=== PATIENT | male | born 1965 | race Two or more races ===

== ENCOUNTER → 2024-05-31 | Outpatient (CLI) | payer BC, SELFPAY ==
[2024-05-31 08:43] LABS: Glucose Estimated Average 160 mg/dL (80-131); Hemoglobin A1C 7.2 % Hgb (4.8-6.0)
== END | disposition home or self-care (01) ==
LOC: COPL 07:13
PROVIDERS: PCP Internal Medicine; Referring Provider Internal Medicine; Visit Provider Internal Medicine
DX: E11.9 Type 2 diabetes mellitus without complications (principal)
CPT/HCPCS: 36415; 83036

== ENCOUNTER → 2024-08-14 | Outpatient (CLI) | payer BC, SELFPAY ==
[2024-08-14 08:52] LABS: Glucose Estimated Average 160 mg/dL (80-131); Hemoglobin A1C 7.2 % Hgb (4.8-6.0)
== END | disposition home or self-care (01) ==
PROVIDERS: PCP Internal Medicine; Referring Provider Internal Medicine; Visit Provider Internal Medicine
DX: E11.9 Type 2 diabetes mellitus without complications (principal)
CPT/HCPCS: 36415; 83036

== ENCOUNTER → 2024-11-25 | Outpatient (CLI) | payer BC, SELFPAY ==
[2024-11-25 08:42] LABS: Basophils % (Auto) 0 % (0-2.5); Eosinophils # (Auto) 0.2 Thou/mm3 (0.0-0.5); Eosinophils % (Auto) 2 % (0-10); Hemoglobin 14.5 g/dL (13.5-16.0); Immature Granulocytes % (Auto) 0 % (0-0); Immature Granulocytes Auto 0.02 Thou/mm3 (0.00-0.00); Lymphocytes # (Auto) 2.6 Thou/mm3 (1.0-4.8); Lymphocytes % (Auto) 31 % (10-50); Mean Corpuscular Hemoglobin 28.2 pg (25.0-35.0); Mean Corpuscular Volume 86 fL (80-100); Monocytes # (Auto) 0.6 Thou/mm3 (0.0-0.8); Monocytes % (Auto) 7 % (0-12); Neutrophils % (Auto) 60 % (37-80); Nucleated Red Blood Cell % 0 /100 WBC (0); Platelet Count 304 Thou/mm3 (140-440); RDW Standard Deviation 40.4 fL (35.1-43.9); Red Blood Count 5.14 Miln/mm3 (4.50-5.90); White Blood Count 8.5 Thou/mm3 (3.8-10.6)
[2024-11-25 08:46] LABS: Prostate Specific Antigen 1.05 ng/mL (0-4.00)
[2024-11-25 08:50] LABS: Vitamin D 25 Hydroxy Total 46.7 ng/mL (7.3-40.2)
[2024-11-25 08:52] LABS: Alanine Aminotransferase 12 U/L (10-49); Albumin, Serum 4.6 gm/dL (3.4-4.8); Albumin/Globulin Ratio 1.8 (1.2-2.2); Alkaline Phosphatase 75 U/L (46-116); Anion Gap 13 (7-16); Aspartate Amino Transferase 16 U/L (0-34); BUN/Creatinine Ratio 13 Ratio (12-20); Bilirubin,Total 1.2 mg/dL (0.3-1.2); Blood Urea Nitrogen 14 mg/dL (9-23); Calcium 9.2 mg/dL (8.3-10.6); Calcium (Corrected) 9.2 mg/dL (8.5-10.1); Cardiac Risk Estimate 4.2 RATIO (4.0-6.7); Chloride 103 mMol/L (98-107); Cholesterol 197 mg/dL (132-200); Creatinine (Component) 1.1 mg/dL (0.6-1.3); Free T4 (Free Thyroxine) 1.26 ng/dL (0.89-1.76); Globulin 2.5 gm/dL (2.3-3.5); Glucose 126 mg/dL (74-106); HDL Cholesterol 47 mg/dL (40-60); LDL Cholesterol,Calculated 116 mg/dL (0-130); Osmolality,Calculated 285 (275-295); Potassium 4.1 mMol/L (3.4-5.1); Sodium 142 mMol/L (136-145); Thyroid Stimulating Hormone 1.28 uIU/mL (0.55-4.78); Total Protein 7.1 gm/dL (5.7-8.2); Triglycerides 168 mg/dL (30-150); eGFR > 60 See Note
[2024-11-25 11:05] LABS: Glucose Estimated Average 166 mg/dL (80-131); Hemoglobin A1C 7.4 % Hgb (4.8-6.0)
== END | disposition home or self-care (01) ==
LOC: COPL 06:38
PROVIDERS: PCP Internal Medicine; Referring Provider Internal Medicine; Visit Provider Internal Medicine
DX: Z00.00 Encounter for general adult medical examination without abnormal findings (principal); N40.1 Benign prostatic hyperplasia with lower urinary tract symptoms; E55.9 Vitamin D deficiency, unspecified
CPT/HCPCS: 36415; 80053; 80061; 82306; 83036; 84153; 84439; 84443; 85025

== ENCOUNTER → 2025-03-03 | Outpatient (CLI) | payer BC, SELFPAY ==
[2025-03-03 08:45] LABS: Glucose Estimated Average 177 mg/dL (80-131); Hemoglobin A1C 7.8 % Hgb (4.8-6.0)
== END | disposition home or self-care (01) ==
LOC: COPL 06:38
PROVIDERS: PCP Internal Medicine; Referring Provider Internal Medicine; Visit Provider Internal Medicine
DX: E11.9 Type 2 diabetes mellitus without complications (principal)
CPT/HCPCS: 36415; 83036

== ENCOUNTER 2025-03-19 20:04 | Emergency (ER) | payer BC, SELFPAY ==
[2025-03-19 20:04] VITALS: BMI 74.9
[2025-03-19 20:52] VITALS: BP 147/77; PULSE 91; RESP 18; TEMP 36.9; O2SAT 98
--- NOTE | 2025-03-19 20:56 | XR_ITS ---
Examination: PA chest single view Technique: Upright PA chest single view Date and time: March 19, 2025, 2106 hrs., Comparison September 05, 2022 Indications: Nausea vomiting epigastric pain shortness of breath today. Findings: Normal heart size Scarring versus pneumonia in the lingular segment Right lung clear No pulmonary edema Impression: Parenchymal scarring versus pneumonia in the lingular segment left upper lobe, clinical correlation advised
--- NOTE | 2025-03-19 20:56 | EKG_ITS ---
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
--- NOTE | 2025-03-19 20:57 | EDRME_ITS ---
Rapid Medical Screening Exam [facility] Arrival date/time: 03/19/25 20:04 59M with history of HTN and DM presents to ED with 1 day of lower chest/epigastric pain and N/V and SOB. Patient had some non-bloody diarrhea yesterday. Chief Complaint: Abdominal Pain Time Seen by Provider: 03/19/25 20:56 Vital signs: Vital Signs Temperature 98.5 F 03/19/25 20:52 Pulse Rate 91 03/19/25 20:52 Respiratory Rate 18 03/19/25 20:52 Blood Pressure 147/77 H 03/19/25 20:52 Pulse Oximetry (%) 98 03/19/25 20:52 Oxygen Delivery Method Room Air 03/19/25 20:52
[2025-03-19] MEDS: ONDANSETRON ODT 4 MG TABRAP PO (21:03)
[2025-03-19 21:30] LABS: Basophils # (Auto) 0.0 Thou/mm3 (0.0-0.2); Basophils % (Auto) 0 % (0-2.5); Eosinophils # (Auto) 0.0 Thou/mm3 (0.0-0.5); Eosinophils % (Auto) 0 % (0-10); Hematocrit 40.2 % (41.0-53.0); Hemoglobin 13.3 g/dL (13.5-16.0); Immature Granulocytes Auto 0.05 Thou/mm3 (0.00-0.00); Lymphocytes # (Auto) 1.3 Thou/mm3 (1.0-4.8); Lymphocytes % (Auto) 9 % (10-50); Mean Corpuscular HGB Conc 33.1 g/dl (31.0-37.0); Mean Corpuscular Hemoglobin 28.5 pg (25.0-35.0); Mean Corpuscular Volume 86 fL (80-100); Monocytes # (Auto) 0.6 Thou/mm3 (0.0-0.8); Monocytes % (Auto) 4 % (0-12); Neutrophils # (Auto) 13.1 Thou/mm3 (1.8-7.7); Neutrophils % (Auto) 87 % (37-80); Nucleated Red Blood Cell # 0.00 Thou/mm3 (0.00-0.00); Nucleated Red Blood Cell % 0 /100 WBC (0); Platelet Count 298 Thou/mm3 (140-440); RDW Standard Deviation 40.0 fL (35.1-43.9); Red Blood Count 4.67 Miln/mm3 (4.50-5.90); White Blood Count 15.1 Thou/mm3 (3.8-10.6)
[2025-03-19 21:47] LABS: Alanine Aminotransferase 15 U/L (10-49); Albumin, Serum 4.8 gm/dL (3.4-4.8); Albumin/Globulin Ratio 2.0 (1.2-2.2); Alkaline Phosphatase 84 U/L (46-116); Anion Gap 11 (7-16); Aspartate Amino Transferase 12 U/L (0-34); BUN/Creatinine Ratio 9 Ratio (12-20); Bilirubin,Total 0.9 mg/dL (0.3-1.2); Blood Urea Nitrogen 11 mg/dL (9-23); Calcium 9.2 mg/dL (8.3-10.6); Calcium (Corrected) 9.2 mg/dL (8.5-10.1); Carbon Dioxide 25.6 mMol/L (20.0-31.0); Chloride 103 mMol/L (98-107); Creatinine (Component) 1.2 mg/dL (0.6-1.3); Estimated Creatinine Clearance 124.5 mL/min (>60); Globulin 2.4 gm/dL (2.3-3.5); Glucose 239 mg/dL (74-106); Lipase 38 U/L (12-53); Magnesium 1.8 mg/dL (1.6-2.6); Osmolality,Calculated 286 (275-295); Potassium 3.8 mMol/L (3.4-5.1); Sodium 140 mMol/L (136-145); Total Protein 7.2 gm/dL (5.7-8.2); Troponin I < 0.020 ng/mL (0.0-0.045); eGFR > 60 See Note
[2025-03-19 23:06] LABS: Collection Type, Urine Clean Catch
[2025-03-19 23:24] LABS: Amorphous Crystals,Urine Present (Absent); Bacteria,Urine Rare; Bilirubin,Urine Negative (Negative); Blood,Urine Negative (Negative); Clarity,Urine Clear (Clear/Hazy); Color,Urine Lt-Yellow (Lt Yel-Yel); Culture Indicated,Urine Not Indicated; Glucose, Urine 4+ (Negative); Ketones,Urine 2+ (Negative); Leukocyte Esterase,Urine Negative (Negative); Nitrite,Urine Negative (Negative); PH,Urine 6.0 (5.0-7.0); Protein,Urine 1+ (Neg - Trace); RBC,Urine < 1 /hpf (0-3); Specific Gravity,Urine 1.036 (1.001-1.035); Squamous Epithelial Cell,Urine < 1 /hpf (0-5); Urobilinogen,Urine Negative mg/dL (0.0-1.0); WBC,Urine < 1 /hpf (0-5)
--- NOTE | 2025-03-20 02:08 | PD.EDABDPN ---
ED Abdominal Pain RME/HPI General Chief Complaint: Abdominal Pain Stated complaint: abd pain Time seen by provider: 03/19/25 20:56 Arrival date/time: 03/19/25 20:04 RME / HPI RME / HPI narrative: 03/19/25 20:04 59M with history of HTN and DM presents to ED with 1 day of lower chest/epigastric pain and N/V and SOB. Patient had some non-bloody diarrhea yesterday. DR. CORBETT MAIN ED EVALUATION: 59 y/o male with Hx of Type II DM and HTN presents to ED c/o diffuse abdominal pain, nausea, and vomiting x 12 hours. Also reports 1 episode of diarrhea 2 days ago, but is unsure if it is due to a stool softener he takes with his diabetes medication. Denies alcohol use. Patient has SHx of hernia repair, and still has his appendix and gall bladder. No other complaint. Related Data Home Medications ?Medication ?Instructions ?Recorded ?Confirmed empagliflozin 10 mg tablet 10 mg PO QDAY 03/13/24 03/13/24 (Jardiance) metformin 1,000 mg tablet 1,000 mg PO BID 03/13/24 03/13/24 losartan 100 1 tab PO QDAY 03/14/24 03/14/24 mg-hydrochlorothiazide 12.5 mg tablet Previous Rx's ?Medication ?Instructions ?Recorded ondansetron 4 mg disintegrating 4 mg PO Q6H PRN nausea and 03/20/25 tablet vomiting #20 tabs Allergies Allergy/AdvReac Type Severity Reaction Status Date / Time No Known Allergies Allergy Verified 03/19/25 20:06 Review of Systems Review of Systems Systems Reviewed: All systems reviewed, normal except as documented Past Medical History Past Medical History CARDIAC: Positive Cardiac Disorders and Hypertension GASTROINTESTINAL: Positive Hemorrhoids ENDOCRINE: Positive Diabetes Mellitus Type 2 ED Exam Narrative Physical exam: Generally patient is alert and in no obvious distress, heart regular rate and rhythm, lungs clear to auscultation equal bilaterally, abdomen soft bowel sounds present mild diffuse tenderness without rebound, skin is warm and dry, neurologic exam no focal motor or sensory deficits cranial nerves II through XII grossly intact Course Quality Measures none Orders Category Date Time Status EKG (ED ONLY) *Do not use* NOW Care 03/19/25 20:56 Completed EKG (ED Only) Stat Exams 03/19/25 20:56 Draft XR chest 1V portable Stat Exams 03/19/25 20:56 Completed CBC Stat Lab 03/19/25 21:23 Completed Comprehensive Metabolic Panel Stat Lab 03/19/25 21:23 Completed Lipase Stat Lab 03/19/25 21:23 Completed Magnesium Stat Lab 03/19/25 21:23 Completed Troponin I Stat Lab 03/19/25 21:23 Completed Urinalysis, C/S if Indicated Stat Lab 03/19/25 22:59 Completed Ondansetron Odt [Zofran Odt] Med 03/19/25 20:57 Discontinued 4 mg PO X1 ONE Ondansetron Odt [Zofran Odt] Med 03/20/25 02:12 Discontinued 4 mg PO X1 ONE Vital Signs Vital signs: Vital Signs Temperature 98.5 F 03/19/25 20:52 Pulse Rate 91 03/19/25 20:52 Respiratory Rate 18 03/19/25 20:52 Blood Pressure 147/77 H 03/19/25 20:52 Pulse Oximetry (%) 98 03/19/25 20:52 Oxygen Delivery Method Room Air 03/19/25 20:52 Abdominal Pain MDM MDM Narrative MDM Narrative:: Scribe Attestation: IAmna, am scribing for and in the presence of Dr. Corbett. Provider Notation: Although this document has been carefully reviewed, there may still be some phonetic and other typographical errors. These errors are purely grammatical due to imperfections in the software program and should not be construed in any way to compromise the substance of the patient's medical care during this visit. I interpreted all labs. Abdominal exam was quite benign. Patient received Zofran 4 mg p.o. x 2 here in the emergency room. He will be placed on Zofran to be taken as prescribed. Patient thinks that he ate some bad food and as a result has an infection. I do not believe this patient needs antibiotic therapy. Patient is safe to Zofran as prescribed. Follow-up with his doctor. Return to ER as needed or if condition worsens Patient data External records reviewed:: [facility] previous records (Reviewed prior ED records from 03/06/20. Patient was seen for Anal or rectal pain.) Clinical information provided by:: patient Social determinants that could affect healthcare access:: none Patient has the following chronic illnesses:: HTN, Type II DM How is presenting disease/condition affected by chronic disease/condition?: exacerbated by Evaluation data The following diagnostics were reviewed and interpreted by me:: lab results, radiology exam(s) and EKG tracing(s) Lab and/or radiology exams considered but not ordered:: None Interpretation Summary: RADIOLOGY Chest X-Ray: Findings: Normal heart size Scarring versus pneumonia in the lingular segment Right lung clear No pulmonary edema Impression: Parenchymal scarring versus pneumonia in the lingular segment left upper lobe, clinical correlation advised Medications / Prescriptions Medications or Prescriptions considered but not ordered:: None Medication administrations:: Medication Administration History Discontinued Medications Ondansetron HCl (Ondansetron Odt 4 Mg Tabrap) 4 mg PO X1 ONE; Protocol Stop: 03/19/25 20:58 Last Admin: 03/19/25 21:03 Dose: 4 mg Documented By: OA Ondansetron HCl (Ondansetron Odt 4 Mg Tabrap) 4 mg PO X1 ONE; Protocol Stop: 03/20/25 02:13 Last Admin: 03/20/25 02:22 Dose: 4 mg Documented By: EE See above if any Consultations Consultation(s) initiated? (list below): No Diagnosis Differential diagnosis abdominal pain: abdominal pain, acute appendicitis, calculus of kidney, constipation, diverticulitis, gastroenteritis, pancreatitis and small bowel obstruction Most likely diagnosis given after review of the tests above:: none Admission Indicated Admission indicated?: not indicated Explain why admission is indicated or not indicated:: Patient does not meet admission criteria Admission Request Was there a request for admission?: No Disposition Plan Disposition Plan: Discharge Discharge Attestation Discharge Attestation: The patient and all family members were given an opportunity to ask questions and understood the discharge instructions. Discharge instructions specifically effects, indications for sooner follow up or return to the emergency department, and the expected course of current diagnosis. Patient condition: Stable Discharge Plan Plan Patient Disposition: HOME (Self Care) Prescriptions/Referrals Prescriptions/Med Rec: New ondansetron 4 mg tablet,disintegrating 4 mg PO Q6H PRN (Reason: nausea and vomiting) Qty: 20 0RF No Action metformin 1,000 mg Tablet 1,000 mg PO BID Jardiance 10 mg Tablet 10 mg PO QDAY losartan-hydrochlorothiazide 100-12.5 mg Tablet 1 tab PO QDAY Referrals: Nithya Acuna MD [Primary Care Provider, Pediatrics] - In 1 week Problem List Clinical Impression: Abdominal pain Patient/Caregiver Discharge Instructions Education Materials: Abdominal Pain Additional Instructions: Zofran as prescribed. Follow-up with your doctor. Return to ER as needed or if condition worsens. Print Language: Telugu Stand Alone Forms: Jackelin Award Info., Patient Portal Info Letter
[2025-03-20] MEDS: ONDANSETRON ODT 4 MG TABRAP PO (02:22)
[2025-03-20 02:36] VITALS: BP 145/62; PULSE 78; RESP 19; TEMP 36.6; O2SAT 99
== END 2025-03-20 02:38 | disposition home or self-care (01) ==
PROVIDERS: Physician Assistant; Emergency Provider Emergency Medicine; PCP Pediatrics
DX: R10.13 Epigastric pain (principal); E11.9 Type 2 diabetes mellitus without complications; I10 Essential (primary) hypertension
CPT/HCPCS: 36415; 71045; 80053; 81001; 83690; 83735; 84484; 85025; 93005; 99283; Q0162